=== PATIENT | female | born 1990 | race Caucasian/White ===

== ENCOUNTER 2018-04-29 15:28 | Emergency (ER) | payer MEDICAID | END 2018-04-29 18:44 | disposition home or self-care (01) | LOC: M ED 15:28 | DX: J40 Bronchitis, not specified as acute or chronic (principal); K04.7 Periapical abscess without sinus; R19.7 Diarrhea, unspecified; G89.29 Other chronic pain; M54.9 Dorsalgia, unspecified; F43.10 Post-traumatic stress disorder, unspecified; Z79.899 Other long term (current) drug therapy; F17.210 Nicotine dependence, cigarettes, uncomplicated | CPT/HCPCS: 71046 ==

== ENCOUNTER 2018-11-08 14:27 | Emergency (ER) | payer MEDICAID, OTHER ==
[~2018-11-08] VITALS: Ht 162.6 cm; Wt 90.0 kg
[~2018-11-08 14:27] MED LIST: BUPR150T3 PO; CLON-412 PO; GABA600T4 PO; GUAISYP9 PO; ONDA8TAB8; PERI0.126 PO; PRAZ1CAP PO; SUMA50TA2; VALP1CAP2 PO; [UNRECOGNIZED DRUG - CODE] PO
[2018-11-08 14:28] VITALS: BP 120/70
[2018-11-08] MEDS ORDERED: PREN29CH2 PO (16:27)
[2018-11-08] MEDS ORDERED: LIDOCAINE 1% MDV 20ML VIAL SC ONE (17:15)
[2018-11-08] MEDS ORDERED: NORC1TAB7 PO (17:21)
[2018-11-08] MEDS ORDERED: AUGM875T28 PO (17:21)
== END 2018-11-08 17:32 | disposition home or self-care (01) ==
LOC: M ED 14:27
DX: S02.5XXA Fracture of tooth (traumatic), initial encounter for closed fracture (principal); X58.XXXA Exposure to other specified factors, initial encounter; Y92.9 Unspecified place or not applicable; Y93.9 Activity, unspecified; Y99.9 Unspecified external cause status; Z72.0 Tobacco use; Z79.899 Other long term (current) drug therapy; Z88.6 Allergy status to analgesic agent

== ENCOUNTER 2018-12-18 09:36 | Emergency (ER) | payer OTHER ==
[~2018-12-18] VITALS: Ht 162.6 cm; Wt 88.2 kg
[2018-12-18 09:36] VITALS: BP 126/58
[~2018-12-18 09:36] MED LIST changes: +AUGM875T28 PO; +NORC1TAB7 PO; +PREN29CH2 PO
[2018-12-18] MEDS ORDERED: ALBU8.5H IH (09:44)
== END 2018-12-18 11:17 | disposition home or self-care (01) ==
LOC: M ED 09:36
DX: O99.89 Other specified diseases and conditions complicating pregnancy, childbirth and the puerperium (principal); K08.89 Other specified disorders of teeth and supporting structures; I10 Essential (primary) hypertension; Z88.8 Allergy status to other drugs, medicaments and biological substances; F17.210 Nicotine dependence, cigarettes, uncomplicated; Z3A.30 30 weeks gestation of pregnancy

== ENCOUNTER 2019-01-16 17:54 | Emergency (ER) | payer OTHER ==
[~2019-01-16] VITALS: Ht 162.6 cm; Wt 86.5 kg
[~2019-01-16 17:54] MED LIST changes: +ALBU8.5H IH
[2019-01-16 17:55] VITALS: BP 107/71
[2019-01-16] MEDS ORDERED: TUMS500C PO (18:51)
[2019-01-16] MEDS ORDERED: MAPA500T2 PO (18:51)
== END 2019-01-16 18:15 | disposition admitted as inpatient to this hospital (09) ==
LOC: M ED 18:15
DX: M54.9 Dorsalgia, unspecified (principal); Z53.21 Procedure and treatment not carried out due to patient leaving prior to being seen by health care provider

== ENCOUNTER 2019-01-16 18:17 | Outpatient (CLI) | payer OTHER ==
[~2019-01-16] VITALS: Ht 162.6 cm; Wt 86.3 kg
[2019-01-16 18:33] VITALS: BP 124/78
[2019-01-16] MEDS ORDERED: TUMS500C PO (18:51)
[2019-01-16] MEDS ORDERED: MAPA500T2 PO (18:51)
[2019-01-16 19:50] LABS: HEMATOCRIT 28.4 % (36.0-47.0); HEMOGLOBIN 9.1 g/dl (12.0-15.5); MEAN CORPUSCULAR VOLUME 90.4 fl (80.0-96.0); PLATELET COUNT, AUTOMATED 293 10^3/uL (150-450); RED BLOOD COUNT 3.14 10^6/uL (4.00-5.40)
[2019-01-16 20:02] LABS: APPEARANCE, URINE CLOUDY (CLEAR); BACTERIA, URINE AUTO NEGATIVE (NEGATIVE); BILIRUBIN, URINE AUTO 1+ (NEGATIVE); BLOOD, URINE BLOOD NEGATIVE (NEGATIVE); COLOR, URINE YELLOW (YELLOW); GLUCOSE, URINE (UA) AUTO NEGATIVE (NEGATIVE); KETONE, URINE AUTO TRACE mg/dL (NEGATIVE); LEUKOCYTE ESTERASE, URINE AUTO NEGATIVE (NEGATIVE); MUCUS, URINE LARGE (NEGATIVE); NITRITE, URINE AUTO NEGATIVE (NEGATIVE); PROTEIN, URINE AUTO 1+ mg/dL (NEGATIVE); RBC, URINE AUTO 1 /HPF (0-3); SPECIFIC GRAVITY URINE AUTO 1.034 (1.002-1.035); SQUAMOUS EPITHELIAL CELL UR AU 23 /HPF (0-6); WBC, URINE AUTO 2 /HPF (0-3)
[2019-01-16 20:50] VITALS: BP 130/97
[2019-01-16] MEDS ORDERED: GABAPENTIN 300 MG CAP PO ONE ×2 (21:00→23:30)
[2019-01-16 21:36] VITALS: BP 103/57
[2019-01-16 21:51] VITALS: BP 108/71
--- NOTE | 2019-01-16 22:12 | REPVR ---
EXAM: US Retroperitoneal Limited, Kidneys EXAM DATE/TIME: 01/16/2019 9:10 PM CLINICAL HISTORY: 28 years old, female; Abdominal pain; Flank; Left; ; Additional info: Left flank pain TECHNIQUE: Imaging protocol: Real-time ultrasound of the retroperitoneum with image documentation. Examination was focused on the kidneys. COMPARISON: No relevant prior studies available. FINDINGS: Right kidney: Right kidney is unremarkable measuring 12.8 No evidence of stones, hydronephrosis, mass, or cyst. Left kidney: Left kidney is unremarkable measuring 12.8 cm.No evidence of stones, hydronephrosis, mass, or cyst. Bladder: The urinary bladder is unremarkable. Other findings: heart rate is 168 beats per minute. IMPRESSION: Bilateral kidneys and urinary bladder are unremarkable. Electronically signed by: June Estrada On 01/16/2019 22:11:38 PM
== END 2019-01-16 23:35 | disposition home or self-care (01) ==
LOC: M LDO 18:17
PROVIDERS: ATTEND Obstetrics & Gynecology
DX: O99.89 Other specified diseases and conditions complicating pregnancy, childbirth and the puerperium (principal); M54.32 Sciatica, left side; Z87.448 Personal history of other diseases of urinary system; Z3A.34 34 weeks gestation of pregnancy

== ENCOUNTER 2019-01-21 10:28 | Emergency (ER) | payer OTHER ==
[~2019-01-21] VITALS: Ht 162.6 cm; Wt 86.4 kg
[~2019-01-21 10:28] MED LIST changes: +MAPA500T2 PO; +TUMS500C PO
[2019-01-21] MEDS ORDERED: LIDOCAINE 2% W/ EPINEPHRINE 1.7 ML DENTAL INJ SM ONE (12:45)
[2019-01-21] MEDS ORDERED: BUPIVACAINE HCL 0.5% 10 ML VIAL SC ONE (12:45)
[2019-01-21] MEDS ORDERED: AUGM875T28 PO (13:11)
[2019-01-21] MEDS ORDERED: LIDO1SOL8 PO (13:11)
[2019-01-21 13:16] VITALS: BP 120/63
== END 2019-01-21 13:17 | disposition home or self-care (01) ==
LOC: M ED 10:28
DX: K04.7 Periapical abscess without sinus (principal); J45.909 Unspecified asthma, uncomplicated; F33.9 Major depressive disorder, recurrent, unspecified; F41.9 Anxiety disorder, unspecified; F43.20 Adjustment disorder, unspecified; Z79.899 Other long term (current) drug therapy; Z88.8 Allergy status to other drugs, medicaments and biological substances; F17.210 Nicotine dependence, cigarettes, uncomplicated

== ENCOUNTER 2019-01-30 19:59 | Outpatient (CLI) | payer OTHER ==
[~2019-01-30] VITALS: Ht 162.6 cm; Wt 88.1 kg
[~2019-01-30 19:59] MED LIST changes: +LIDO1SOL8 PO
[2019-01-30 20:45] VITALS: BP 118/58
[2019-01-30] MEDS ORDERED: GABAPENTIN 400 MG CAP PO ONE (20:45)
[2019-01-30] MEDS ORDERED: GABA-845 PO (20:49)
--- NOTE | 2019-01-31 02:43 | NUR ---
L&D Triage Note 28yo at 37wks weeks presents with chronic lower back pain / sciatica. History of lower back pain and restless leg for which she takes gabapentin 800mg TID. She has run out of rx and seeking refill. She plans to transfer her care from [place], but has not initiated. States she cannot get appt sooner than Sunday. No VB/LOF/uctx. +FM. VSS, AF EFM: Cat I / reactive, no decels, +mod variability [place]: no ctx pattern present. A/P: 28yo at 37wks. Low back pain/sciatica. Improved with Gabapentin 800mg -instructed to f/u with primary OB provided for continued care until she transfers care -Labor precautions and FKCs Bridget Marcano MD
== END 2019-01-30 21:10 | disposition home or self-care (01) ==
LOC: M LDO 19:59
PROVIDERS: ATTEND Obstetrics & Gynecology
DX: O26.893 Other specified pregnancy related conditions, third trimester (principal); M54.5 Low back pain; Z3A.37 37 weeks gestation of pregnancy

== ENCOUNTER 2019-02-18 07:36 | Inpatient (IN) | payer OTHER ==
[2019-02-18] VITALS (8 sets, daily range): BP systolic 104–124; BP diastolic 60–75
[~2019-02-18] VITALS: Ht 165.1 cm; Wt 91.1 kg
[~2019-02-18 07:36] MED LIST changes: -ALBU8.5H IH; +ALBU8.5H INH; +GABA-845 PO; +PRAM1TAB7 PO
[2019-02-18] MEDS ORDERED: LACTATED RINGER'S 1000 ML IV STA (07:57)
[2019-02-18] MEDS ORDERED: LR 1,000 ML IV SCH ×2 (07:57→08:00)
[2019-02-18] MEDS ORDERED: BICITRA 30ML SOLN UDC PO ONE ×2 (08:00)
[2019-02-18] MEDS ORDERED: ceFAZolin SOD 2 GM in IV 1 EA IV ONE ×4 (08:00)
[2019-02-18 08:43] LABS: HEMATOCRIT 31.1 % (36.0-47.0); HEMOGLOBIN 9.8 g/dl (12.0-15.5); MEAN CORPUSCULAR HEMOGLOBIN 26.4 pg (27.0-33.0); MEAN CORPUSCULAR HGB CONC 31.5 g/dl (32.0-36.5); MEAN CORPUSCULAR VOLUME 83.8 fl (80.0-96.0); PLATELET COUNT, AUTOMATED 332 10^3/uL (150-450); RED BLOOD COUNT 3.71 10^6/uL (4.00-5.40); WHITE BLOOD COUNT 13.8 10^3/uL (4.0-10.0)
[2019-02-18] MEDS ORDERED: diphenhydrAMINE INJ 50MG/ML VIAL (J1200) IV PRN (09:44)
[2019-02-18] MEDS ORDERED: ONDANSETRON 4MG/2ML VIAL (J2405) IV PRN ×3 (09:44→11:15)
[2019-02-18] MEDS ORDERED: NALOXONE INJ 0.4 MG/1 ML VIAL (J2310) IV PRN ×2 (09:44)
[2019-02-18] MEDS ORDERED: METOCLOPRAMIDE INJ 10MG/2ML VIAL (J2765) IV PRN (09:44)
[2019-02-18] MEDS ORDERED: NALBUPHINE HCL 10 MG/ML AMP (J2300) IV PRN (09:44)
[2019-02-18] MEDS ORDERED: MORPHINE PRES-FREE INJ 10 MG/10 ML VIAL (J2274) As Ordered ONE (09:45)
[2019-02-18] MEDS ORDERED: OXYTOCIN INJ 10 UNITS/ML VIAL (J2590) As Ordered ONE (09:45)
[2019-02-18] MEDS ORDERED: ONDANSETRON 4MG/2ML VIAL (J2405) As Ordered ONE (09:55)
[2019-02-18] MEDS ORDERED: ePHEDrine SULFATE 25 MG/5 ML(5MG/ML) SYRINGE As Ordered ONE (09:55)
[2019-02-18] MEDS ORDERED: KETOROLAC 60 MG/2 ML VIAL (J1885) As Ordered ONE (09:55)
[2019-02-18 09:57] LABS: AMPHETAMINES URINE REFLEX NEGATIVE (NEGATIVE); BARBITURATES URINE REFLEX NEGATIVE (NEGATIVE); BENZODIAZEPINES URINE REFLEX NEGATIVE (NEGATIVE); CANNABINOIDS URINE REFLEX NEGATIVE (NEGATIVE); COCAINE METABOLITE URINE REFLE NEGATIVE (NEGATIVE); METHADONE URINE REFLEX NEGATIVE (NEGATIVE); OPIATES URINE REFLEX NEGATIVE (NEGATIVE); PHENCYCLIDINE URINE REFLEX NEGATIVE (NEGATIVE)
[2019-02-18] MEDS ORDERED: ACETAMINOPHEN 1000MG 100ML IV BTL (OFIRMEV) (J0131 PER 10MG) As Ordered ONE (09:59)
[2019-02-18] MEDS ORDERED: OXYTOCIN DRIP 30 UNITS in IV 1 EA IV SCH (11:06)
[2019-02-18] MEDS ORDERED: fentaNYL 100 MCG/2 ML INJECTION (J3010) IV PRN (11:15)
[2019-02-18] MEDS ORDERED: DOCUSATE SODIUM 100 MG CAP PO PRN (11:15)
[2019-02-18] MEDS ORDERED: MEASLES,MUMPS,RUBELLA VACCINE INJ (MMR-II) (90707) SC SCH (11:15)
[2019-02-18] MEDS ORDERED: RHOGAM 300 MCG (1500 IU) INJ (J2790) IM SCH (11:15)
[2019-02-18] MEDS ORDERED: OXYTOCIN 30 UNITS IN 0.9% NaCl 500ML IV BAG (J2590) As Ordered ONE (12:01)
[2019-02-18] MEDS: PERCOCET 5MG/325MG TAB PO PRN ×3 (13:00→20:25)
[2019-02-18] MEDS: LR 1,000 ML IV SCH ×2 (16:11→19:20)
[2019-02-18] MEDS ORDERED: OXYC1TAB23 PO (20:12)
[2019-02-19] MEDS: PERCOCET 5MG/325MG TAB PO PRN ×6 (00:29→20:57)
[2019-02-19 02:03] VITALS: BP 119/62
[2019-02-19] MEDS: LR 1,000 ML IV SCH (02:31)
[2019-02-19 06:06] VITALS: BP 117/63
[2019-02-19 06:40] LABS: HEMATOCRIT 29.7 % (36.0-47.0); HEMOGLOBIN 9.2 g/dl (12.0-15.5); MEAN CORPUSCULAR HEMOGLOBIN 26.7 pg (27.0-33.0); MEAN CORPUSCULAR VOLUME 86.1 fl (80.0-96.0); PLATELET COUNT, AUTOMATED 333 10^3/uL (150-450); RED BLOOD COUNT 3.45 10^6/uL (4.00-5.40); WHITE BLOOD COUNT 16.1 10^3/uL (4.0-10.0)
[2019-02-19] MEDS: PRENATAL VITAMINS CHEWABLE TABLET PO SCH (07:42)
--- NOTE | 2019-02-19 09:22 | RO ---
DATE OF PROCEDURE: 02/18/2019 PREPROCEDURE DIAGNOSES: 39 weeks, prior section times two, undesired fertility. POSTPROCEDURE DIAGNOSES: 39 weeks, prior section times two, undesired fertility. PROCEDURE: Repeat low transverse section, bilateral tubal ligation. SURGEON: Shimon Navarro MD SUPERVISOR RECORD PRESS: Patricia Thompson CNM ANESTHESIA: Spinal. ESTIMATED BLOOD LOSS: 500 mL. URINE OUTPUT: 150 mL. FINDINGS: 5 pound 11 ounce, 2570 gram, female. scores of 9 and 9. Vertex position. Normal uterus, fallopian tubes and ovaries. DESCRIPTION OF PROCEDURE: The patient was taken to the operating room where spinal anesthesia was induced. She was prepped and draped in a sterile fashion in the supine position. A Hylton catheter was placed. A Pfannenstiel skin incision was made with a scalpel and carried through to the fascia. The fascia was nicked and extended. The fascia was dissected off the rectus muscles. The peritoneal cavity was entered. A bladder flap was created. A curvilinear incision was made in the lower uterine segment until clear fluid was noted. This was extended manually. The infant was delivered from the vertex position without difficulty. The cord was doubly clamped and cut. The was handed off to the waiting nurses. The placenta was expressed. The uterus was exteriorized and cleared of clots and debris. The uterine incision was closed with 0 Vicryl in a running locked fashion. A second imbricating layer of 0 Vicryl was placed. Attention was turned to the fallopian tubes. The fallopian tubes were grasped at their mid portion with Stefan clamp. Window was created in the broad ligament. Free ties of 3-0 chromic was placed on either side of the [place] clamp. The tube was bilaterally excised and sent to pathology. The uterus was placed back into the abdominal cavity. The peritoneum was closed with 2-0 Vicryl in a running fashion. The fascia was closed in 0 Vicryl in a running fashion. The deep layer was irrigated and closed with 3-0 chromic. The skin was closed with 4-0 Monocryl in subcuticular stitch. Sponge, instrument and needle counts were correct. Patricia Thompson CNM assisted throughout the procedure. She helped create each layer of the incision. She helped with expulsion of the fetus and closure of all subsequent layers.
[2019-02-19 10:05] VITALS: BP 114/72
[2019-02-19 14:06] VITALS: BP 109/63
[2019-02-19 18:03] VITALS: BP 115/58
[2019-02-20] MEDS: PERCOCET 5MG/325MG TAB PO PRN ×3 (02:22→12:04)
[2019-02-20 05:35] VITALS: BP 120/70
[2019-02-20] MEDS: PRENATAL VITAMINS CHEWABLE TABLET PO SCH (07:32)
--- NOTE | 2019-02-20 08:53 | DSES ---
DATE OF ADMISSION: 02/18/2019 DATE OF DISCHARGE: 02/20/2019 DISCHARGE DIAGNOSIS: Repeat section at term. SURGEON: Dr. Shimon Navarro RETAIL SHIFT MANAGER: Radha Thompson, certified nurse precipitate washer HISTORY: Silvia is a 4, para 3-0-1-3 now who underwent repeat section at 39 weeks. The surgery was uncomplicated. She had an estimated blood loss for 500 mL. She delivered a live female infant weighing 5 pounds 7 ounces, 2570 grams, scores 9 and 9. Her postoperative course has been uncomplicated. She has been out of bed for self care, keenan care and care. Her pain is well controlled with p.o. pain medications. She is tolerating p.o. fluids and a regular diet, voiding without difficulty and passing flatus. She is bottle feeding. There is some history of CPS involvement and the 's discharge will be withheld until CPS has approved the mom to go home with the baby. OBJECTIVE: Temperature 98, pulse 110, respirations 18, blood pressure is 120/70. Preoperative CBC on 02/18/2019 hemoglobin 9.8, hematocrit 31.1, platelets 332. Postoperative CBC on 02/19/2019 hemoglobin 9.2, hematocrit 29.7, platelets 333. She is alert and oriented times three. Breasts are soft, nontender. Nipples are intact. Abdomen with fundus firm at umbilicus. The dressing is intact. There is no drainage noted. Perineum is intact. Lochia rubra scant. Bilateral lower extremities with +1 edema. PLAN: Discharge the patient home today. She is to follow-up at [facility] for a two week incision check and eight week visit. I did review discharge instructions that include breast care, incision care, keenan care, pelvic rest, activity and lifting restrictions, access to care and danger signs to report to her provider. Her pain medications have been E-prescribed by Dr. Shimon Navarro to her pharmacy. The patient has had all her questions answered and requests discharge today.
[2019-02-25] MEDS ORDERED: OXYC1TAB23 PO (13:45)
== END 2019-02-20 14:45 | disposition home or self-care (01) | DRG 540 ==
LOC: M LDI 07:36 → M OBS 12:30
PROVIDERS: ADMIT Specialist; ATTEND Specialist
PROC: 0UB70ZZ Excision of Bilateral Fallopian Tubes, Open Approach (ICD-10-PCS; 2019-02-18)
PROC: 10D00Z1 Extraction of Products of Conception, Low, Open Approach (ICD-10-PCS; principal; 2019-02-18 09:30)
DX: O34.211 Maternal care for low transverse scar from previous cesarean delivery (principal); F17.210 Nicotine dependence, cigarettes, uncomplicated; Z30.2 Encounter for sterilization; O99.334 Smoking (tobacco) complicating childbirth; Z3A.39 39 weeks gestation of pregnancy; Z37.0 Single live birth

== ENCOUNTER 2019-02-24 18:05 | Emergency (ER) | payer OTHER ==
[~2019-02-24] VITALS: Ht 162.6 cm; Wt 84.5 kg
[~2019-02-24 18:05] MED LIST changes: +OXYC1TAB23 PO
[2019-02-24] MEDS ORDERED: ACET160S3 PO (18:13)
[2019-02-24 19:28] LABS: HEMATOCRIT 34.8 % (36.0-47.0); HEMOGLOBIN 10.9 g/dl (12.0-15.5); MEAN CORPUSCULAR HEMOGLOBIN 26.9 pg (27.0-33.0); MEAN CORPUSCULAR HGB CONC 31.3 g/dl (32.0-36.5); MEAN CORPUSCULAR VOLUME 85.9 fl (80.0-96.0); PLATELET COUNT, AUTOMATED 469 10^3/uL (150-450); RED BLOOD COUNT 4.05 10^6/uL (4.00-5.40); WHITE BLOOD COUNT 12.4 10^3/uL (4.0-10.0)
[2019-02-24 20:03] LABS: ALBUMIN 2.8 GM/DL (3.2-5.2); ALT/SGPT 14 U/L (12-78); BILIRUBIN,TOTAL 0.2 MG/DL (0.2-1.0); BLOOD UREA NITROGEN 13 MG/DL (7-18); CARBON DIOXIDE LEVEL 24 MEQ/L (21-32); CHLORIDE LEVEL 112 MEQ/L (98-107); CREATININE FOR GFR 0.77 MG/DL (0.55-1.30); GLOMERULAR FILTRATION RATE > 60.0 (>60); GLUCOSE, FASTING 92 MG/DL (70-100); LIPASE 207 U/L (73-393); POTASSIUM SERUM 4.5 MEQ/L (3.5-5.1); SODIUM LEVEL 143 MEQ/L (136-145); TOTAL PROTEIN 6.9 GM/DL (6.4-8.2)
[2019-02-24 20:19] LABS: APPEARANCE, URINE CLEAR (CLEAR); BACTERIA, URINE AUTO NEGATIVE (NEGATIVE); BILIRUBIN, URINE AUTO NEGATIVE (NEGATIVE); BLOOD, URINE BLOOD 2+ (NEGATIVE); COLOR, URINE YELLOW (YELLOW); GLUCOSE, URINE (UA) AUTO NEGATIVE (NEGATIVE); KETONE, URINE AUTO NEGATIVE (NEGATIVE); LEUKOCYTE ESTERASE, URINE AUTO NEGATIVE (NEGATIVE); MUCUS, URINE SMALL (NEGATIVE); NITRITE, URINE AUTO NEGATIVE (NEGATIVE); PROTEIN, URINE AUTO NEGATIVE (NEGATIVE); RBC, URINE AUTO 8 /HPF (0-3); SPECIFIC GRAVITY URINE AUTO 1.019 (1.002-1.035); SQUAMOUS EPITHELIAL CELL UR AU 1 /HPF (0-6); WBC, URINE AUTO 1 /HPF (0-3)
[2019-02-24] MEDS ORDERED: MORPHINE 4 MG/ML 1ML VIAL/SYRINGE (J2270) IV ONE (20:45)
[2019-02-24] MEDS ORDERED: ISOVUE-370 76% 100ML VIAL (Q9967) As Ordered ONE (20:58)
--- NOTE | 2019-02-24 21:20 | REPVR ---
EXAM: US Pelvis Limited, Transabdominal EXAM DATE/TIME: 02/24/19 (8:10pm) CLINICAL HISTORY: 28 year old female with pelvic pain. 5 days S/P . Patient felt tear and pain at scar area. 3-7 days post-operative. TECHNIQUE: Imaging protocol: Real-time transabdominal pelvic ultrasound with image documentation. Limited examination. COMPARISON: No relevant prior studies available FINDINGS: High resolution sonography of the pelvis ws performed, with special attention paidto the area of a recent scar. A small linear collection of fluid (4 x 2 x 19 mm size) is noted in the SQ soft tissues, to the left of the scar. No uterine mass is seen. No adnexal pathology is evident. IMPRESSION: Small linear collection of fluid in the SQ soft tissues, to the left of a recent scar --- perhaps a post-operative seroma; perhaps a small hematoma. No abnormal mass is seen. Electronically signed by: Chela Hankins On 02/24/2019 21:19:46 PM
--- NOTE | 2019-02-24 22:26 | REPVR ---
EXAM: CT Abdomen and Pelvis With Contrast EXAM DATE/TIME: 02/24/19 (9:24pm) CLINICAL HISTORY: 28 year old female with generalized abdominal pain. LLQ / left flank pain. 5 days S/P . TECHNIQUE: Imaging protocol: Axial computed tomography images of the abdomen and pelvis with intravenous contrast. Coronal and sagittal reformatted images were created and reviewed. Radiation optimization: All CT scans at this facility use at least one of these dose optimization techniques: automated exposure control; mA and/or kV adjustment per patient size (includes targeted exams where dose is matched to clinical indication); or iterative reconstruction. Contrast material: Isovue 370 Contrast volume: 100 ml Contrast route: IV COMPARISON: US PELVIS (limited) of 02/24/19 FINDINGS: Liver: Normal. No solid mass. Gallbladder and bile ducts: Mildly distended gallbladder. No calcified stones. No ductal dilation. Pancreas: Normal. No ductal dilatation. Spleen: Prominent spleen. Adrenals: Normal. No mass. Kidneys and ureters: Normal. No hydronephrosis. Stomach and bowel: Normal. No bowel obstruction. No mucosal thickening. Appendix: No evidence of appendicitis. Intraperitoneal space: Normal. No free air. No significant fluid collection. Vasculature: Normal. No abdominal aortic aneurysm. Lymph nodes: Normal. No enlarged lymph nodes. Bladder: Unremarkable as visualized. Reproductive: Enlarged post- uterus (S/P recent ). Some fluid is present in the uterine cavity. Bones/joints: No acute fracture nor dislocation. Soft tissues: Mild post-operative anterior body wall changes, at and below the umbilical level. Some SQ air bubbles are present. Probable scarring at the periumbilical region. Other findings: No drainable fluid collections. IMPRESSION: Generally mild post-operative anterior body wall changes, at and below the umbilical level. Some SQ air bubbles are present. Probable scarring at the periumbilical region. Enlarged uterus. No drainable fluid collections. No discrete abscess. No acute bowel pathology. No hydronephrosis. Electronically signed by: Chela Hankins On 02/24/2019 22:26:40 PM
[2019-02-24] MEDS ORDERED: CYCL10TA PO (22:40)
[2019-02-24] MEDS ORDERED: PRED20TA PO (22:40)
[2019-02-24 22:49] VITALS: BP 132/71
--- NOTE | 2019-02-25 09:36 | REP ---
CHEST X-RAY: Two views. HISTORY: Cough shortness of breath. Post . FINDINGS: There are two partially metallic clothing artifact densities in the extrathoracic anterior soft tissues on the lateral view. These project over the chest on the frontal view. The lungs are well inflated and clear. Pleural angles are sharp. Cardiomediastinal silhouette is unremarkable. No bony abnormality is seen. Pulmonary vasculature is not and crease. IMPRESSION: Negative chest x-ray. Clothing artifact. Electronically Signed by Richard Strauss MD 02/25/2019 07:29 P
[2019-02-25] MEDS ORDERED: OXYC1TAB23 PO (13:45)
== END 2019-02-24 22:52 | disposition home or self-care (01) ==
LOC: M ED 18:05
DX: M54.32 Sciatica, left side (principal); R51 Headache; F43.10 Post-traumatic stress disorder, unspecified; J45.909 Unspecified asthma, uncomplicated; F41.9 Anxiety disorder, unspecified; F32.9 Major depressive disorder, single episode, unspecified; Z72.0 Tobacco use; Z79.899 Other long term (current) drug therapy; Z88.6 Allergy status to analgesic agent
CPT/HCPCS: 71046; 74177; 76857; 80053; 81001; 83690; 85027; 96374; 99284; J2270; Q9967

== ENCOUNTER 2019-07-01 21:35 | Emergency (ER) | payer OTHER ==
[~2019-07-01] VITALS: Ht 162.6 cm; Wt 89.1 kg
[~2019-07-01 21:35] MED LIST changes: +ACET160S3 PO; +CYCL10TA PO; +PRED20TA PO
[2019-07-01] MEDS ORDERED: ONDA8TAB8 PO (21:45)
[2019-07-01] MEDS ORDERED: GABA-845 PO (21:45)
[2019-07-01] MEDS ORDERED: WELLTAB38 PO (21:45)
[2019-07-01] MEDS ORDERED: MIRA0.5T PO (21:45)
[2019-07-01] MEDS ORDERED: DICY10CA13 PO (21:45)
[2019-07-01] MEDS ORDERED: NS 1,000 ML IV ONE (22:00)
[2019-07-01] MEDS ORDERED: MORPHINE 4 MG/ML 1ML VIAL/SYRINGE (J2270) IV ONE (22:15)
[2019-07-01 22:26] LABS: BASO # 0.1 10^3/uL (0.0-0.2); BASO % 0.8 % (0.0-1.0); EOS # 0.4 10^3/uL (0.0-0.5); EOS % 4.4 % (0.0-3.0); HEMATOCRIT 33.8 % (36.0-47.0); HEMOGLOBIN 10.3 g/dl (12.0-15.5); LYMPH % 30.5 % (24.0-44.0); MEAN CORPUSCULAR HEMOGLOBIN 26.1 pg (27.0-33.0); MEAN CORPUSCULAR HGB CONC 30.5 g/dl (32.0-36.5); MEAN CORPUSCULAR VOLUME 85.6 fl (80.0-96.0); MONO # 0.5 10^3/uL (0.0-0.8); MONO % 5.4 % (0.0-5.0); NEUTROPHILS # 5.8 10^3/uL (1.5-8.5); NEUTROPHILS % 58.7 % (36.0-66.0); PLATELET COUNT, AUTOMATED 398 10^3/uL (150-450); RED BLOOD COUNT 3.95 10^6/uL (4.00-5.40); WHITE BLOOD COUNT 9.9 10^3/uL (4.0-10.0)
[2019-07-01 22:43] LABS: ALBUMIN 3.6 GM/DL (3.2-5.2); ALT/SGPT 12 U/L (12-78); AMYLASE 66 U/L (25-115); BILIRUBIN,DIRECT < 0.1 MG/DL (0.0-0.2); BILIRUBIN,TOTAL 0.4 MG/DL (0.2-1.0); BLOOD UREA NITROGEN 10 MG/DL (7-18); CALCIUM LEVEL 8.9 MG/DL (8.5-10.1); CARBON DIOXIDE LEVEL 24 MEQ/L (21-32); CHLORIDE LEVEL 107 MEQ/L (98-107); CREATININE FOR GFR 0.82 MG/DL (0.55-1.30); GLOMERULAR FILTRATION RATE > 60.0 (>60); GLUCOSE, FASTING 89 MG/DL (70-100); LIPASE 192 U/L (73-393); POTASSIUM SERUM 3.9 MEQ/L (3.5-5.1); SODIUM LEVEL 138 MEQ/L (136-145)
--- NOTE | 2019-07-01 22:50 | REPVR ---
PROCEDURE INFORMATION: Exam: US Abdomen Limited, Right Upper Quadrant Exam date and time: 07/01/19 (10:26pm) Age: 28 years old Clinical indication: Epigastric / RUQ pain. History of gallstones. TECHNIQUE: Imaging protocol: Real-time ultrasound of the abdomen with image documentation. Examination was focused on the right upper quadrant. COMPARISON: US RENAL of 01/16/19 FINDINGS: The liver is visually normal in size and texture. Multiple small stones (echogenic foci with shadowing) at the gallbladder neck region. The gallbladder wall is thin (1.8 mm). No pericholecystic fluid is appreciated. The CBD is not dilated (3.8 mm diameter). The pancreas appears unremarkable. The right kidney measures 11.1 cm in length, with no hydronephrosis appreciated. No ascites is seen. IMPRESSION: No evidence of acute cholecystitis. Multiple small stones at the gallbladder neck. The gallbladder wall is thin. No pericholecystic fluid. No biliary obstruction. Electronically signed by: Chela Hankins On 07/01/2019 22:50:15 PM
[2019-07-01 23:06] VITALS: BP 140/68
[2019-07-01] MEDS ORDERED: OXYCODONE/APAP 5MG/325MG(BULK FOR ED) 1 TABLET PO ONE (23:15)
== END 2019-07-01 23:19 | disposition home or self-care (01) ==
LOC: M ED 21:35
DX: K80.70 Calculus of gallbladder and bile duct without cholecystitis without obstruction (principal); J45.909 Unspecified asthma, uncomplicated; F33.9 Major depressive disorder, recurrent, unspecified; F41.9 Anxiety disorder, unspecified; F43.10 Post-traumatic stress disorder, unspecified; Z79.899 Other long term (current) drug therapy; Z88.8 Allergy status to other drugs, medicaments and biological substances
CPT/HCPCS: 76705; 80048; 80076; 81001; 82150; 83690; 84702; 85025; 96361; 96374; 99284; J2270

== ENCOUNTER 2019-07-11 13:34 | Emergency (ER) | payer OTHER ==
[~2019-07-11] VITALS: Ht 162.6 cm; Wt 87.1 kg
[~2019-07-11 13:34] MED LIST changes: +DICY10CA13 PO; +MIRA0.5T PO; +ONDA8TAB8 PO; +WELLTAB38 PO
[2019-07-11 13:35] VITALS: BP 112/65
[2019-07-11] MEDS ORDERED: VALP1CAP2 PO (13:49)
[2019-07-11] MEDS ORDERED: BACL10TA8 PO (13:49)
[2019-07-11] MEDS ORDERED: PRAZ2CAP PO (13:49)
[2019-07-11] MEDS ORDERED: MORPHINE 4 MG/ML 1ML VIAL/SYRINGE (J2270) IV ONE (15:15)
[2019-07-11] MEDS ORDERED: NS 1,000 ML IV ONE (15:15)
[2019-07-11] MEDS ORDERED: ONDANSETRON 4MG/2ML VIAL (J2405) IV ONE (15:15)
[2019-07-11 15:35] LABS: BASO # 0.1 10^3/uL (0.0-0.2); BASO % 0.8 % (0.0-1.0); EOS # 0.3 10^3/uL (0.0-0.5); EOS % 3.8 % (0.0-3.0); HEMATOCRIT 37.6 % (36.0-47.0); HEMOGLOBIN 11.5 g/dl (12.0-15.5); LYMPH # 3.2 10^3/uL (1.5-5.0); LYMPH % 35.9 % (24.0-44.0); MEAN CORPUSCULAR HEMOGLOBIN 26.2 pg (27.0-33.0); MEAN CORPUSCULAR HGB CONC 30.6 g/dl (32.0-36.5); MEAN CORPUSCULAR VOLUME 85.6 fl (80.0-96.0); MONO # 0.6 10^3/uL (0.0-0.8); MONO % 6.7 % (0.0-5.0); NEUTROPHILS # 4.7 10^3/uL (1.5-8.5); NEUTROPHILS % 52.6 % (36.0-66.0); PLATELET COUNT, AUTOMATED 377 10^3/uL (150-450); RED BLOOD COUNT 4.39 10^6/uL (4.00-5.40); WHITE BLOOD COUNT 8.9 10^3/uL (4.0-10.0)
[2019-07-11 16:01] LABS: ALBUMIN 3.7 GM/DL (3.2-5.2); ALT/SGPT 15 U/L (12-78); BILIRUBIN,DIRECT < 0.1 MG/DL (0.0-0.2); BILIRUBIN,TOTAL 0.3 MG/DL (0.2-1.0); BLOOD UREA NITROGEN 6 MG/DL (7-18); CARBON DIOXIDE LEVEL 25 MEQ/L (21-32); CHLORIDE LEVEL 109 MEQ/L (98-107); CREATININE FOR GFR 0.87 MG/DL (0.55-1.30); GLOMERULAR FILTRATION RATE > 60.0 (>60); GLUCOSE, FASTING 78 MG/DL (70-100); LIPASE 188 U/L (73-393); POTASSIUM SERUM 4.4 MEQ/L (3.5-5.1); SODIUM LEVEL 140 MEQ/L (136-145); TOTAL PROTEIN 7.1 GM/DL (6.4-8.2)
[2019-07-11] MEDS ORDERED: ISOVUE-370 76% 100ML VIAL (Q9967) As Ordered ONE (16:04)
--- NOTE | 2019-07-11 16:50 | REP ---
Clinical: Right upper quadrant pain. Technique: Axial contrast enhanced images from the lung bases to the pubic symphysis with coronal and sagittal re-formations using 100 ml Isovue 370 intravenous contrast material. Comparison: 02/24/2019. Findings: Lung bases are clear. Visualized heart and pericardium normal. Stable subcentimeter right posterior hepatic cyst. Spleen, pancreas, gallbladder, bilateral adrenal glands and kidneys are normal. The enteric system is without obstruction or acute inflammatory process. Normal terminal ileum, cecum and appendix identified in the right lower quadrant. Pelvis demonstrates normal bladder and age-appropriate uterus/adnexa. Sigmoid diverticula noted without acute diverticulitis. No ascites. No free air. No adenopathy. Surrounding musculoskeletal structures are intact. Abdominal aorta without aneurysm or dissection. Impression: No acute abdominopelvic pathology appreciated. Electronically Signed by Korey Brown MD 07/11/2019 04:41 P
[2019-07-11] MEDS ORDERED: ACETAMINOPHEN 325 MG TAB PO ONE (17:15)
== END 2019-07-11 18:07 | disposition left against medical advice (07) ==
LOC: M ED 13:34
DX: R10.11 Right upper quadrant pain (principal); R51 Headache; R11.2 Nausea with vomiting, unspecified; J45.909 Unspecified asthma, uncomplicated; F33.9 Major depressive disorder, recurrent, unspecified; F41.9 Anxiety disorder, unspecified; F43.10 Post-traumatic stress disorder, unspecified; Z79.899 Other long term (current) drug therapy; Z88.8 Allergy status to other drugs, medicaments and biological substances; F17.210 Nicotine dependence, cigarettes, uncomplicated
CPT/HCPCS: 74177; 80048; 80076; 81001; 83690; 84702; 85025; 96361; 96374; 96375; 99283; J2270; J2405; Q9967

== ENCOUNTER → 2019-08-04 | Outpatient (REF) | payer OTHER ==
[~2019-08-04] MED LIST changes: +BACL10TA8 PO; +PRAZ2CAP PO
[2019-08-04 17:17] LABS: APPEARANCE, URINE HAZY (CLEAR); BACTERIA, URINE AUTO NEGATIVE (NEGATIVE); BILIRUBIN, URINE AUTO NEGATIVE (NEGATIVE); BLOOD, URINE BLOOD NEGATIVE (NEGATIVE); COLOR, URINE YELLOW (YELLOW); GLUCOSE, URINE (UA) AUTO NEGATIVE (NEGATIVE); KETONE, URINE AUTO NEGATIVE (NEGATIVE); LEUKOCYTE ESTERASE, URINE AUTO NEGATIVE (NEGATIVE); MUCUS, URINE SMALL (NEGATIVE); NITRITE, URINE AUTO NEGATIVE (NEGATIVE); PROTEIN, URINE AUTO NEGATIVE (NEGATIVE); RBC, URINE AUTO 0 /HPF (0-3); SQUAMOUS EPITHELIAL CELL UR AU 1 /HPF (0-6); UROBILINOGEN, URINE AUTO 0.2 mg/dL (0.0-2.0); WBC, URINE AUTO 1 /HPF (0-3)
== END ==
LOC: M LAB REF 16:30
PROVIDERS: ATTEND Physician Assistant
DX: R39.15 Urgency of urination (principal)

== ENCOUNTER → 2020-08-23 | Outpatient (REF) | payer OTHER, MEDICAID ==
[~2020-08-23] MED LIST changes: -BUPR150T3 PO; +BUPR150T4 PO; +CYCL-707 PO; -CYCL10TA PO; -LIDO1SOL8 PO; +LIDO2SOL17 PO
[2020-08-23 18:05] LABS: BASO # 0.1 10^3/uL (0.0-0.2); BASO % 0.5 % (0.0-1.0); EOS # 0.2 10^3/uL (0.0-0.5); HEMATOCRIT 41.1 % (36.0-47.0); LYMPH # 2.1 10^3/uL (1.5-5.0); LYMPH % 17.7 % (24.0-44.0); MEAN CORPUSCULAR HEMOGLOBIN 27.3 pg (27.0-33.0); MEAN CORPUSCULAR HGB CONC 31.6 g/dl (32.0-36.5); MEAN CORPUSCULAR VOLUME 86.3 fl (80.0-96.0); MONO # 0.7 10^3/uL (0.0-0.8); NEUTROPHILS # 8.8 10^3/uL (1.5-8.5); NEUTROPHILS % 73.5 % (36.0-66.0); PLATELET COUNT, AUTOMATED 415 10^3/uL (150-450); RED BLOOD COUNT 4.76 10^6/uL (4.00-5.40); WHITE BLOOD COUNT 11.9 10^3/uL (4.0-10.0)
[2020-08-23 19:18] LABS: ALBUMIN 4.4 GM/DL (3.2-5.2); ALT/SGPT 17 U/L (12-78); BILIRUBIN,TOTAL 0.4 MG/DL (0.2-1.0); BLOOD UREA NITROGEN 12 MG/DL (7-18); CALCIUM LEVEL 9.5 MG/DL (8.5-10.1); CARBON DIOXIDE LEVEL 26 MEQ/L (21-32); CHLORIDE LEVEL 107 MEQ/L (98-107); CREATININE FOR GFR 0.84 MG/DL (0.55-1.30); GLOMERULAR FILTRATION RATE > 60.0 (>60); GLUCOSE, FASTING 75 MG/DL (70-100); IRON (FE) 21 UG/DL (50-170); LIPASE 129 U/L (73-393); MAGNESIUM LEVEL 2.1 MG/DL (1.8-2.4); PERCENT SATURATION 4.6 % (13.2-45.0); POTASSIUM SERUM 4.1 MEQ/L (3.5-5.1); SODIUM LEVEL 140 MEQ/L (136-145); THYROID STIMULATING HORMONE 0.585 uIU/ML (0.358-3.740); TOTAL IRON BINDING CAPACITY 460 UG/DL (250-450); VITAMIN B12 LEVEL 473 PG/ML
== END ==
LOC: M LAB REF 17:44
PROVIDERS: ATTEND Physician Assistant
DX: G25.81 Restless legs syndrome (principal)

== ENCOUNTER → 2022-08-01 | Outpatient (REF) | payer OTHER ==
[~2022-08-01] MED LIST changes: +BUPR150T12 PO; -BUPR150T4 PO; +GABA-283 PO; -GABA-845 PO
[2022-08-01 18:14] LABS: HEMATOCRIT 38.8 % (36.0-47.0); HEMOGLOBIN 12.3 g/dl (12.0-15.5); MEAN CORPUSCULAR HGB CONC 31.7 g/dl (32.0-36.5); MEAN CORPUSCULAR VOLUME 91.5 fl (80.0-96.0); PLATELET COUNT, AUTOMATED 290 10^3/uL (150-450); RED BLOOD COUNT 4.24 10^6/uL (4.00-5.40); WHITE BLOOD COUNT 10.2 10^3/uL (4.0-10.0)
[2022-08-01 18:30] LABS: PERCENT SATURATION 5.1 % (13.2-45.0)
[2022-08-01 18:32] LABS: THYROID STIMULATING HORMONE 0.837 uIU/ML (0.55-4.78)
== END ==
LOC: M LAB REF 17:52
PROVIDERS: ATTEND Pediatrics
DX: M54.16 Radiculopathy, lumbar region (principal); L65.9 Nonscarring hair loss, unspecified; E61.1 Iron deficiency

== ENCOUNTER → 2022-10-04 | Outpatient (CLI) | payer OTHER ==
[~2022-10-04] MED LIST changes: +GABA-282 PO; +LASI40TA9 PO; +LIDO15SO4 PO; -LIDO2SOL17 PO; +SUBO8MIS SL
[2022-10-04 11:50] LABS: ALBUMIN 3.7 G/DL (3.2-5.2); ALKALINE PHOSPHATASE 79 U/L (46-116); ALT/SGPT 47 U/L (7.0-40); AST/SGOT 32 U/L (<34); BILIRUBIN,DIRECT 0.1 MG/DL (<0.4); BILIRUBIN,TOTAL 0.3 MG/DL (0.3-1.2); BLOOD UREA NITROGEN 16 MG/DL (9-23); CALCIUM LEVEL 8.7 MG/DL (8.5-10.1); CARBON DIOXIDE LEVEL 32 MMOL/L (20-31); CHLORIDE LEVEL 100 MMOL/L (98-107); CREATININE FOR GFR 0.68 MG/DL (0.55-1.30); GLOMERULAR FILTRATION RATE > 60.0 (>60); GLUCOSE, FASTING 90 MG/DL (60-100); POTASSIUM SERUM 3.8 MMOL/L (3.5-5.1); SODIUM LEVEL 140 MMOL/L (136-145); TOTAL PROTEIN 6.5 G/DL (5.7-8.2)
== END ==
LOC: M WUC 08:35
PROVIDERS: ATTEND Surgery
DX: I50.9 Heart failure, unspecified (principal)

== ENCOUNTER → 2022-10-04 | Outpatient (CLI) | payer OTHER ==
[2022-10-04 11:16] LABS: HEMATOCRIT 37.2 % (36.0-47.0); HEMOGLOBIN 11.5 g/dl (12.0-15.5); MEAN CORPUSCULAR HEMOGLOBIN 28.5 pg (27.0-33.0); MEAN CORPUSCULAR HGB CONC 30.9 g/dl (32.0-36.5); MEAN CORPUSCULAR VOLUME 92.1 fl (80.0-96.0); PLATELET COUNT, AUTOMATED 319 10^3/uL (150-450); RED BLOOD COUNT 4.04 10^6/uL (4.00-5.40); WHITE BLOOD COUNT 7.1 10^3/uL (4.0-10.0)
[2022-10-04 11:47] LABS: ALBUMIN 3.7 G/DL (3.2-5.2); ALKALINE PHOSPHATASE 79 U/L (46-116); ALT/SGPT 47 U/L (7.0-40); AST/SGOT 33 U/L (<34); BILIRUBIN,TOTAL 0.4 MG/DL (0.3-1.2); BLOOD UREA NITROGEN 16 MG/DL (9-23); CALCIUM LEVEL 8.6 MG/DL (8.5-10.1); CARBON DIOXIDE LEVEL 32 MMOL/L (20-31); CHLORIDE LEVEL 101 MMOL/L (98-107); CREATININE FOR GFR 0.69 MG/DL (0.55-1.30); GLOMERULAR FILTRATION RATE > 60.0 (>60); GLUCOSE, FASTING 91 MG/DL (60-100); POTASSIUM SERUM 3.8 MMOL/L (3.5-5.1); SODIUM LEVEL 140 MMOL/L (136-145); TOTAL PROTEIN 6.5 G/DL (5.7-8.2)
[2022-10-04 11:57] LABS: HCG, SERUM QUALITATIVE NEGATIVE (NEGATIVE)
[2022-10-04 12:01] LABS: HEPATITIS B SURFACE ANTIGEN NEGATIVE (NEGATIVE)
[2022-10-04 12:14] LABS: HIV 1&2 SCREEN CENTAUR NEGATIVE (NEGATIVE)
[2022-10-04 12:39] LABS: GC DNA AMPLIFICATION NEGATIVE (NEGATIVE)
== END ==
LOC: M WUC 08:32
PROVIDERS: ATTEND Family Medicine
DX: F11.20 Opioid dependence, uncomplicated (principal)

== ENCOUNTER 2022-10-05 11:04 | Emergency (ER) | payer OTHER ==
[~2022-10-05] VITALS: Ht 162.6 cm; Wt 109.1 kg
[~2022-10-05 11:04] MED LIST changes: -GABA-282 PO; -LASI40TA9 PO; -SUBO8MIS SL
[2022-10-05] MEDS ORDERED: SUBO8MIS SL (11:31)
[2022-10-05] MEDS ORDERED: GABA-282 PO (11:31)
[2022-10-05 13:32] LABS: BASO % 0.4 % (0.0-1.0); EOS # 0.1 10^3/uL (0.0-0.5); EOS % 1.4 % (0.0-3.0); HEMATOCRIT 37.4 % (36.0-47.0); HEMOGLOBIN 11.4 g/dl (12.0-15.5); LYMPH # 1.7 10^3/uL (1.5-5.0); LYMPH % 22.4 % (24.0-44.0); MEAN CORPUSCULAR HEMOGLOBIN 27.9 pg (27.0-33.0); MEAN CORPUSCULAR HGB CONC 30.5 g/dl (32.0-36.5); MEAN CORPUSCULAR VOLUME 91.7 fl (80.0-96.0); MONO # 0.5 10^3/uL (0.0-0.8); MONO % 6.7 % (2.0-8.0); NEUTROPHILS # 5.2 10^3/uL (1.5-8.5); NEUTROPHILS % 68.8 % (36.0-66.0); PLATELET COUNT, AUTOMATED 326 10^3/uL (150-450); RED BLOOD COUNT 4.08 10^6/uL (4.00-5.40); WHITE BLOOD COUNT 7.6 10^3/uL (4.0-10.0)
[2022-10-05] MEDS ORDERED: FUROSEMIDE 40MG/4ML VIAL IV ONE (13:50)
[2022-10-05 14:04] LABS: CPK CREATINE PHOSPHOKINASE 136 U/L (34-145)
[2022-10-05 14:10] LABS: ALBUMIN 3.6 G/DL (3.2-5.2); ALKALINE PHOSPHATASE 80 U/L (46-116); ALT/SGPT 43 U/L (7.0-40); AST/SGOT 27 U/L (<34); BILIRUBIN,DIRECT 0.1 MG/DL (<0.4); BILIRUBIN,TOTAL 0.3 MG/DL (0.3-1.2); BLOOD UREA NITROGEN 18 MG/DL (9-23); CALCIUM LEVEL 9.2 MG/DL (8.5-10.1); CARBON DIOXIDE LEVEL 30 MMOL/L (20-31); CHLORIDE LEVEL 104 MMOL/L (98-107); CK-MB VALUE MASS < 1.0 NG/ML (<3.6); CREATININE FOR GFR 0.76 MG/DL (0.55-1.30); GLOMERULAR FILTRATION RATE > 60.0 (>60); GLUCOSE, FASTING 88 MG/DL (60-100); MB/CK RELATIVE INDEX 0.73 (< OR =4); POTASSIUM SERUM 4.3 MMOL/L (3.5-5.1); SODIUM LEVEL 141 MMOL/L (136-145); TOTAL PROTEIN 6.6 G/DL (5.7-8.2)
[2022-10-05 15:24] LABS: CK-MB VALUE MASS < 1.0 NG/ML (<3.6)
[2022-10-05 15:32] LABS: CPK CREATINE PHOSPHOKINASE 135 U/L (34-145); MB/CK RELATIVE INDEX 0.74 (< OR =4)
[2022-10-05] MEDS ORDERED: LASI40TA9 PO (17:10)
[2022-10-05] MEDS ORDERED: FUROSEMIDE 20MG/2ML VIAL IV ONE (17:10)
[2022-10-05] MEDS ORDERED: FUROSEMIDE 20 MG TAB PO ONE (17:40)
[2022-10-05 17:44] VITALS: BP 136/82
== END 2022-10-05 17:47 | disposition home or self-care (01) ==
LOC: M ED 11:04
DX: R60.9 Edema, unspecified (principal); R39.14 Feeling of incomplete bladder emptying; R51.9 Headache, unspecified; J45.909 Unspecified asthma, uncomplicated; F43.10 Post-traumatic stress disorder, unspecified; Z87.442 Personal history of urinary calculi; F17.200 Nicotine dependence, unspecified, uncomplicated; Z88.6 Allergy status to analgesic agent; Z79.51 Long term (current) use of inhaled steroids; Z79.899 Other long term (current) drug therapy
CPT/HCPCS: 71045; 80047; 80048; 80076; 81001; 82550; 82553; 83880; 84484; 85025; 93005; 93041; 93970; 94760; 96374; 96376; 99285; J1940

== ENCOUNTER → 2022-10-13 | Outpatient (CLI) | payer OTHER ==
[~2022-10-13] MED LIST changes: +GABA-282 PO; +LASI40TA9 PO; +SUBO8MIS SL
[2022-10-13 17:27] LABS: BLOOD UREA NITROGEN 22 MG/DL (9-23); CALCIUM LEVEL 8.5 MG/DL (8.5-10.1); CARBON DIOXIDE LEVEL 29 MMOL/L (20-31); CHLORIDE LEVEL 104 MMOL/L (98-107); CREATININE FOR GFR 0.72 MG/DL (0.55-1.30); GLOMERULAR FILTRATION RATE > 60.0 (>60); GLUCOSE, FASTING 87 MG/DL (60-100); POTASSIUM SERUM 3.9 MMOL/L (3.5-5.1); SODIUM LEVEL 140 MMOL/L (136-145)
== END ==
LOC: M WUC 10:52
PROVIDERS: ATTEND Surgery
DX: Z51.81 Encounter for therapeutic drug level monitoring (principal); Z79.899 Other long term (current) drug therapy

== ENCOUNTER 2022-10-20 12:30 | Emergency (ER) | payer OTHER ==
[~2022-10-20] VITALS: Ht 162.6 cm; Wt 130.9 kg
[~2022-10-20 12:30] MED LIST changes: +LIDO15SO PO; -LIDO15SO4 PO
[2022-10-20] MEDS ORDERED: PHEN1TAB73 PO (12:39)
[2022-10-20] MEDS ORDERED: FURO40TA2 PO (12:39)
[2022-10-20] MEDS ORDERED: ACETAMINOPHEN 1000MG 100ML IV BAG IV ONE (13:15)
[2022-10-20] MEDS ORDERED: ACETAMINOPHEN 325 MG TAB PO ONE (13:45)
[2022-10-20 13:55] LABS: BASO % 0.4 % (0.0-1.0); EOS # 0.1 10^3/uL (0.0-0.5); EOS % 1.6 % (0.0-3.0); HEMATOCRIT 35.7 % (36.0-47.0); HEMOGLOBIN 10.7 g/dl (12.0-15.5); LYMPH # 1.5 10^3/uL (1.5-5.0); LYMPH % 18.9 % (24.0-44.0); MEAN CORPUSCULAR HEMOGLOBIN 27.6 pg (27.0-33.0); MONO # 0.6 10^3/uL (0.0-0.8); MONO % 7.9 % (2.0-8.0); NEUTROPHILS # 5.7 10^3/uL (1.5-8.5); NEUTROPHILS % 70.8 % (36.0-66.0); PLATELET COUNT, AUTOMATED 359 10^3/uL (150-450); RED BLOOD COUNT 3.88 10^6/uL (4.00-5.40); WHITE BLOOD COUNT 8.1 10^3/uL (4.0-10.0)
[2022-10-20 14:07] LABS: ERYTHROCYTE SEDIMENTATION RATE 30 mm/hr (0-20)
[2022-10-20 14:23] LABS: BLOOD UREA NITROGEN 15 MG/DL (9-23); CALCIUM LEVEL 8.4 MG/DL (8.5-10.1); CARBON DIOXIDE LEVEL 31 MMOL/L (20-31); CHLORIDE LEVEL 105 MMOL/L (98-107); CK-MB VALUE MASS < 1.0 NG/ML (<3.6); CPK CREATINE PHOSPHOKINASE 167 U/L (34-145); GLOMERULAR FILTRATION RATE > 60.0 (>60); GLUCOSE, FASTING 94 MG/DL (60-100); MB/CK RELATIVE INDEX 0.59 (< OR =4); POTASSIUM SERUM 4.5 MMOL/L (3.5-5.1); SODIUM LEVEL 139 MMOL/L (136-145)
[2022-10-20 14:38] LABS: APPEARANCE, URINE CLEAR (CLEAR); BACTERIA, URINE AUTO NEGATIVE (NEGATIVE); BILIRUBIN, URINE AUTO NEGATIVE (NEGATIVE); BLOOD, URINE BLOOD 2+ (NEGATIVE); COLOR, URINE AMBER (YELLOW); GLUCOSE, URINE (UA) AUTO NEGATIVE (NEGATIVE); KETONE, URINE AUTO NEGATIVE (NEGATIVE); LEUKOCYTE ESTERASE, URINE AUTO NEGATIVE (NEGATIVE); MUCUS, URINE SMALL (NEGATIVE); NITRITE, URINE AUTO POSITIVE (NEGATIVE); PROTEIN, URINE AUTO NEGATIVE (NEGATIVE); RBC, URINE AUTO 3 /HPF (0-3); SPECIFIC GRAVITY URINE AUTO 1.011 (1.002-1.035); SQUAMOUS EPITHELIAL CELL UR AU 0 /HPF (0-6); WBC, URINE AUTO 0 /HPF (0-3)
[2022-10-20] MEDS ORDERED: ISOVUE-370 76% 100ML VIAL As Ordered ONE (16:01)
[2022-10-20 16:10] VITALS: BP 129/67
[2022-10-20] MEDS ORDERED: VENTAER INH (16:12)
[2022-10-20] MEDS ORDERED: HOME MED LIST COMPLETE! XX SCH (16:15)
[2022-10-20] MEDS ORDERED: GABA-282 PO (17:47)
[2022-10-20] MEDS ORDERED: SENN-186 PO (17:47)
[2022-10-20] MEDS ORDERED: POTA-151 PO (17:47)
[2022-10-20] MEDS ORDERED: LASI40TA9 PO (17:47)
[2022-10-20] MEDS ORDERED: MIRA3350 PO (17:47)
[2022-10-20] MEDS ORDERED: BUPRENORPHINE/NALOXONE 8-2MG SUBLINGUAL TABLET(SUBOXONE) SL ONE (17:50)
== END 2022-10-20 18:03 | disposition home or self-care (01) ==
LOC: M ED 12:30
DX: R60.9 Edema, unspecified (principal); R10.9 Unspecified abdominal pain; F41.9 Anxiety disorder, unspecified; F32.A Depression, unspecified; F43.10 Post-traumatic stress disorder, unspecified; M54.30 Sciatica, unspecified side; J45.909 Unspecified asthma, uncomplicated; Z87.442 Personal history of urinary calculi; F17.200 Nicotine dependence, unspecified, uncomplicated; Z88.6 Allergy status to analgesic agent; Z79.899 Other long term (current) drug therapy; Z79.51 Long term (current) use of inhaled steroids
CPT/HCPCS: 36415; 71046; 74176; 74177; 80048; 81001; 82550; 82553; 83880; 84484; 85025; 85652; 86140; 87040; 93005; 93970; 99284; Q9967

== ENCOUNTER → 2022-10-27 | Outpatient (REF) | payer OTHER ==
[~2022-10-27] MED LIST changes: +FURO40TA2 PO; +MIRA3350 PO; +PHEN1TAB73 PO; +POTA-151 PO; +SENN-186 PO; +VENTAER INH
[2022-10-27 17:12] LABS: BLOOD UREA NITROGEN 16 MG/DL (9-23); CALCIUM LEVEL 8.4 MG/DL (8.5-10.1); CARBON DIOXIDE LEVEL 30 MMOL/L (20-31); CHLORIDE LEVEL 104 MMOL/L (98-107); CREATININE FOR GFR 0.76 MG/DL (0.55-1.30); GLOMERULAR FILTRATION RATE > 60.0 (>60); GLUCOSE, FASTING 83 MG/DL (60-100); POTASSIUM SERUM 4.1 MMOL/L (3.5-5.1); SODIUM LEVEL 141 MMOL/L (136-145)
== END ==
LOC: M LAB REF 16:10
PROVIDERS: ATTEND Surgery
DX: Z51.81 Encounter for therapeutic drug level monitoring (principal)

== ENCOUNTER 2022-11-07 11:59 | Emergency (ER) | payer MEDICAID, OTHER ==
[~2022-11-07] VITALS: Ht 162.6 cm; Wt 90.0 kg
[2022-11-07 14:45] LABS: HEMATOCRIT 34.8 % (36.0-47.0); HEMOGLOBIN 10.7 g/dl (12.0-15.5); MEAN CORPUSCULAR HEMOGLOBIN 27.2 pg (27.0-33.0); MEAN CORPUSCULAR HGB CONC 30.7 g/dl (32.0-36.5); MEAN CORPUSCULAR VOLUME 88.3 fl (80.0-96.0); PLATELET COUNT, AUTOMATED 385 10^3/uL (150-450); RED BLOOD COUNT 3.94 10^6/uL (4.00-5.40); WHITE BLOOD COUNT 10.5 10^3/uL (4.0-10.0)
[2022-11-07 15:01] LABS: ERYTHROCYTE SEDIMENTATION RATE 55 mm/hr (0-20)
[2022-11-07 15:11] LABS: AMORPHOUS SEDIMENT SMALL (NEGATIVE); APPEARANCE, URINE CLOUDY (CLEAR); BACTERIA, URINE AUTO NEGATIVE (NEGATIVE); BILIRUBIN, URINE AUTO NEGATIVE (NEGATIVE); BLOOD, URINE BLOOD NEGATIVE (NEGATIVE); COLOR, URINE AMBER (YELLOW); GLUCOSE, URINE (UA) AUTO NEGATIVE (NEGATIVE); KETONE, URINE AUTO NEGATIVE (NEGATIVE); LEUKOCYTE ESTERASE, URINE AUTO NEGATIVE (NEGATIVE); NITRITE, URINE AUTO NEGATIVE (NEGATIVE); PROTEIN, URINE AUTO NEGATIVE (NEGATIVE); RBC, URINE AUTO 1 /HPF (0-3); SPECIFIC GRAVITY URINE AUTO 1.015 (1.002-1.035); SQUAMOUS EPITHELIAL CELL UR AU 5 /HPF (0-6); UROBILINOGEN, URINE AUTO 0.2 mg/dL (0.0-2.0); WBC, URINE AUTO 1 /HPF (0-3)
[2022-11-07 15:13] LABS: ALBUMIN 3.3 G/DL (3.2-5.2); ALKALINE PHOSPHATASE 72 U/L (46-116); ALT/SGPT 35 U/L (7.0-40); AST/SGOT 20 U/L (<34); BILIRUBIN,DIRECT 0.1 MG/DL (<0.4); BILIRUBIN,TOTAL 0.3 MG/DL (0.3-1.2); BLOOD UREA NITROGEN 13 MG/DL (9-23); CALCIUM LEVEL 8.4 MG/DL (8.5-10.1); CARBON DIOXIDE LEVEL 27 MMOL/L (20-31); CHLORIDE LEVEL 105 MMOL/L (98-107); CREATININE FOR GFR 0.79 MG/DL (0.55-1.30); GLOMERULAR FILTRATION RATE > 60.0 (>60); GLUCOSE, FASTING 90 MG/DL (60-100); HCG, SERUM QUALITATIVE NEGATIVE (NEGATIVE); POTASSIUM SERUM 4.4 MMOL/L (3.5-5.1); SODIUM LEVEL 139 MMOL/L (136-145); TOTAL PROTEIN 6.4 G/DL (5.7-8.2)
[2022-11-07] MEDS ORDERED: ISOVUE-370 76% 100ML VIAL As Ordered ONE (15:17)
[2022-11-07 15:20] LABS: RSV AMPLIFICATION NEGATIVE (NEGATIVE)
[2022-11-07] MEDS ORDERED: FUROSEMIDE 100MG/10ML VIAL IV ONE (15:40)
[2022-11-07] MEDS ORDERED: POTA1TAB14 PO (16:58)
[2022-11-07] MEDS ORDERED: PRAM0.754 PO (16:58)
[2022-11-07] MEDS ORDERED: SUMA50TA2 PO (16:58)
[2022-11-07] MEDS ORDERED: BACTDSTA PO (16:59)
[2022-11-07] MEDS ORDERED: HOME MED LIST COMPLETE! XX SCH (17:00)
[2022-11-07] MEDS ORDERED: DALBAVANCIN 1,500 MG in D5W 250 ML IV ONE (17:45)
[2022-11-07] MEDS ORDERED: FURO20TA2 PO (18:15)
[2022-11-07] MEDS ORDERED: FURO40TA2 PO (18:15)
[2022-11-07] MEDS ORDERED: ONDANSETRON 4MG 2ML VIAL IV ONE (18:50)
[2022-11-07 19:46] VITALS: BP 116/59
== END 2022-11-07 19:52 | disposition home or self-care (01) ==
LOC: M ED 11:59
DX: L03.311 Cellulitis of abdominal wall (principal); R60.9 Edema, unspecified; R51.9 Headache, unspecified; M54.30 Sciatica, unspecified side; Z87.442 Personal history of urinary calculi; F43.10 Post-traumatic stress disorder, unspecified; F41.9 Anxiety disorder, unspecified; F17.210 Nicotine dependence, cigarettes, uncomplicated; Z88.6 Allergy status to analgesic agent; Z79.51 Long term (current) use of inhaled steroids; Z79.899 Other long term (current) drug therapy
CPT/HCPCS: 36415; 71046; 74177; 80048; 80076; 81001; 83880; 84703; 85027; 85652; 86140; 87631; 93005; 93970; 96365; 96375; 99284; J0875; J1940; J2405; Q9967

== ENCOUNTER → 2022-11-23 | Outpatient (CLI) | payer MEDICAID ==
[~2022-11-23] MED LIST changes: +BACTDSTA PO; +FURO20TA2 PO; +POTA-298 PO; +PRAM0.754 PO; +SUMA50TA2 PO
== END ==
LOC: M WUC 10:28
PROVIDERS: ATTEND Surgery
DX: Z51.81 Encounter for therapeutic drug level monitoring (principal); Z79.899 Other long term (current) drug therapy